=== PATIENT | female | born 1950 | race Two or more races ===

== ENCOUNTER 2016-11-08 19:37 | Emergency (ER) | payer OTHER, MEDICAID ==
[2016-11-08 20:42] VITALS: BMI 5314.7
[2016-11-08 20:43] VITALS: TEMP 98
[2016-11-08 21:59] VITALS: BP 148/67; PULSE 75
[2016-11-08] MEDS ORDERED: CYCLOBENZAPRINE 10 MG TAB PO ONE (22:04)
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
== END 2016-11-08 23:06 | disposition home or self-care (01) ==
LOC: ED 19:37
DX: S16.1XXA Strain of muscle, fascia and tendon at neck level, initial encounter (principal); T14.8 Other injury of unspecified body region; V49.40XA Driver injured in collision with unspecified motor vehicles in traffic accident, initial encounter
CPT/HCPCS: 99283; J3490